=== PATIENT | male | born 1960 | race Caucasian/White ===

== ENCOUNTER 2024-06-17 20:14 | Emergency (ER) | payer BC, SELFPAY ==
[2024-06-17 20:16] VITALS: BP 165/107; PULSE 73; RESP 18; TEMP 37; O2SAT 97
--- NOTE | 2024-06-17 20:40 | ED.WOUNDLAC ---
HPI - Wound/Laceration General Chief Complaint: Wound/Laceration Stated Complaint: lac to left thumb Time Seen by Provider: 06/17/24 20:26 Source: patient Mode of arrival: ambulatory Limitations: no limitations History of Present Illness HPI narrative: Baltazar is a 63-year-old male patient presenting to the ER today with complaints of a laceration to the base of the left thumb. He reports he was cutting an avocado when the knife slipped and he accidentally cut the lateral aspect of the base of the left thumb. Lacerations and approximately 1 cm in size. Mild gaping. Bleeding is controlled. Tetanus is unknown Related Data Allergies Allergy/AdvReac Type Severity Reaction Status Date / Time No Known Allergies Allergy Verified 06/17/24 20:18 Review of Systems Review of Systems: Pertinent positives per HPI. Patient denies any fever, chills, rash, headache, visual changes, dizziness, cough, runny nose, sore throat, shortness of breath, chest pain, palpitations, nausea, vomiting, diarrhea, constipation, abdominal pain, or any urinary issues. PMFSH Comments At the time of my signature, I reviewed and agree with the nursing past medical, surgical, social, and family history. There is no relevant family history pertinent to the patient complaint. Exam Narrative: General: Well-developed, well nourished, in no apparent distress Head: Normocephalic, atraumatic. Cardio: Regular rate and rhythm, s1 and s2 normal, no murmur appreciated. Resp: Clear to auscultation bilaterally, no rhonchi, rales, wheezing or rubs. Integumentary: [place], warm, and dry, 1 cm mildly gaping laceration to the lateral proximal thumb Course Course Emergency Course: Portions of this record may have been created with voice recognition software. Vital Signs Vital signs: Vital Signs Temperature 37.0 C 06/17/24 20:16 Pulse Rate 73 06/17/24 20:16 Respiratory Rate 18 06/17/24 20:16 Blood Pressure 165/107 H 06/17/24 20:16 Pulse Oximetry 97 06/17/24 20:16 Oxygen Delivery Room Air 06/17/24 20:16 Temperature 37.0 C 06/17/24 20:16 Pulse Rate 73 06/17/24 20:16 Respiratory Rate 18 06/17/24 20:16 Blood Pressure 165/107 H 06/17/24 20:16 Pulse Oximetry 97 06/17/24 20:16 Oxygen Delivery Room Air 06/17/24 20:16 Vital signs reviewed MDM - Wound/Laceration MDM Narrative Medical decision making narrative: At the time of visit patient is resting comfortably on the exam table. Patient appears to be nontoxic. Procedures: Laceration repair was performed in the ER today. Medications given: Tdap 0.5 IM Plan: Patient has a 1 cm laceration to the base of the left thumb. Two interrupted sutures were placed to close wound. Bleeding controlled, patient tolerated well.Supportive measures were discussed with the patient and they voiced understanding discharge instructions and agrees to treatment plan. Return precautions reviewed Differential Diagnosis Differential diagnosis: Likely laceration, abscess, abrasion and avulsion of skin Discharge Plan Discharge Clinical Impression: Laceration of thumb Qualifiers: Encounter type: initial encounter Damage to nail status: without damage Foreign body presence: without foreign body Laterality: left Qualified Code(s): S61.012A - Laceration without foreign body of left thumb without damage to nail, initial encounter Patient Disposition: Home, Self-Care Condition: Stable Instructions: Antibiotic Form, Laceration (ED) Additional Instructions: Leave bandage on for 24 hours then may remove and apply band aide covering as needed. Keep wound clean and dry Skin sutures out in 7 days. Watch for signs and symptoms of infection- redness, streaking, swelling, purulent discharge, or increase in pain. Follow up with your PCP for suture removal or return to the Express care. Follow-up/Referrals: PHYSICIAN,MINGLER OPERATOR [Primary Care Provider] - Time of Disposition: 2
[2024-06-17] MEDS: TETANUS,DIPHTHERIA,AC PERTUSSIS ADULT (0.5 ML) BOOSTRIX IM (20:47)
== END 2024-06-17 21:15 | disposition home or self-care (01) ==
PROVIDERS: Emergency Provider Nurse Practitioner Family
DX: S61.012A Laceration without foreign body of left thumb without damage to nail, initial encounter (principal); W26.0XXA Contact with knife, initial encounter; Z23 Encounter for immunization
CPT/HCPCS: 12001; 90471; 90715; 99282

== ENCOUNTER 2024-06-23 10:04 | Emergency (ER) | payer BC, SELFPAY ==
[2024-06-23 10:27] VITALS: BP 150/90; PULSE 86; RESP 18; TEMP 36.6; O2SAT 97
--- NOTE | 2024-06-23 10:47 | ED.SKABFB ---
HPI - Skin/Abscess/Foreign Bdy General Chief complaint: Skin/Abscess/Foreign Body Stated complaint: stitch removal Time Seen by Provider: 06/23/24 10:48 Source: patient Mode of arrival: ambulatory Limitations: no limitations History of Present Illness HPI narrative: 64-year-old male presents for suture removal. Had sutures placed to left thumb 1 week ago after cutting himself with a knife. Patient reports feeling well, was able to call 2 days ago without any bleeding from wound. Denies pain. Range of motion and distal neurovascularly intact to left thumb. All systems reviewed and negative except as noted above. Related Data Home Medications Medication Instructions Recorded Confirmed felodipine 10 mg tablet,extended mg PO 06/23/24 release 24 hr hydrochlorothiazide 25 mg tablet mg 06/23/24 simvastatin 40 mg tablet mg 06/23/24 Allergies Allergy/AdvReac Type Severity Reaction Status Date / Time No Known Allergies Allergy Verified 06/23/24 10:36 Review of Systems Review of Systems: CONSTITUTIONAL: Denies fever, chills, or sweats. EYES: Denies visual changes, redness, or discharge. ENT: Denies rhinorrhea, congestion, sore throat, or otalgia. CARDIOVASCULAR: Denies chest pain, palpitations, or edema. RESPIRATORY: Denies cough or dyspnea. GASTROINTESTINAL: Denies abdominal pain, nausea, vomiting, or diarrhea. GENITOURINARY: Denies dysuria or hematuria. SKIN: Denies rash or itching. Here for suture removal from left thumb laceration. MUSCULOSKELETAL: Denies back pain, joint pain, or myalgia. NEUROLOGIC: Denies headache, numbness, or weakness. PSYCHIATRIC: Denies anxiety or depression. All other systems reviewed are negative, except as documented in HPI. PMFSH Comments At time of signature, agree with nursing past medical, surgical, social and family history. There is no relevant family history pertinent to the presenting complaint. Exam Narrative: GENERAL: This is a well-nourished, well-developed patient, in no apparent distress. HEAD: normocephalic, atraumatic. EYES: PERRL. Sclera clear/white. Vision is grossly intact. EARS: External ears normal NOSE: External nose normal NECK: Neck supple, non-tender without lymphadenopathy, masses or thyromegaly. CARDIOVASCULAR: Regular rate and rhythm without murmurs, gallops, or rubs. RESPIRATORY: Clear to auscultation. Breath sounds equal bilaterally. No wheezes, rales, or rhonchi. SKIN: warm, Dry, intact with no suspicious lesions or rash, good texture and turgor. Two sutures removed from left thumb laceration. Mild erythema noted no swelling or drainage. NEURO: awake, alert, and oriented to person, place and time. There were no obvious focal neurologic abnormalities. EXTREMITIES: No joint tenderness, effusion, or edema noted. Course Course Level of Care: Express Care Visit Vital Signs Vital signs: Vital Signs Temperature 36.6 C 06/23/24 10:27 Pulse Rate 86 06/23/24 10:27 Respiratory Rate 18 06/23/24 10:27 Blood Pressure 150/90 H 06/23/24 10:27 Pulse Oximetry 97 06/23/24 10:27 Oxygen Delivery Room Air 06/23/24 10:27 Temperature 36.6 C 06/23/24 10:27 Pulse Rate 86 06/23/24 10:27 Respiratory Rate 18 06/23/24 10:27 Blood Pressure 150/90 H 06/23/24 10:27 Pulse Oximetry 97 06/23/24 10:27 Oxygen Delivery Room Air 06/23/24 10:27 Reviewed Procedures Other Procedure Procedure 1: Other Procedure: 2 sutures removed from left thumb laceration using tweezers and scissors. MDM - Skin/Abscess/Foreign Bdy MDM Narrative Medical decision making narrative: Patient is aware of diagnosis, understands and agrees to treatment plan. Anticipatory guidance given. Patient agrees to follow-up as directed and is aware of reasons to seek care at the emergency department. Portions of this record may have been created with voice recognition software Mild erythema surrounding healing laceration. Rec
== END 2024-06-23 10:56 | disposition home or self-care (01) ==
PROVIDERS: Emergency Provider Nurse Practitioner Family
DX: S61.012D Laceration without foreign body of left thumb without damage to nail, subsequent encounter (principal); W26.0XXD Contact with knife, subsequent encounter; E78.00 Pure hypercholesterolemia, unspecified; I10 Essential (primary) hypertension
CPT/HCPCS: 99211; G0463